=== PATIENT | female | born 1985 | race Caucasian/White ===

== ENCOUNTER 2021-09-23 14:26 | Inpatient (IN) | payer OTHER ==
[2021-09-23] VITALS (7 sets, daily range): BP systolic 107–115; BP diastolic 65–74
[~2021-09-23] VITALS: Ht 162.6 cm; Wt 82.0 kg
[2021-09-23] MEDS: PRENATAL VITAMINS CHEWABLE TABLET PO SCH (09:00)
[2021-09-23] MEDS ORDERED: OXYTOCIN INJ 10 UNITS/ML VIAL (J2590) As Ordered ONE (14:30)
[2021-09-23] MEDS ORDERED: OXYTOCIN 30 UNITS IN 0.9% NaCl 500ML IV BAG (J2590) As Ordered ONE (14:51)
[2021-09-23] MEDS ORDERED: OXYTOCIN DRIP 30 UNITS in IV 1 EA IV PRN (14:55)
[2021-09-23] MEDS ORDERED: OXYTOCIN INJ 10 UNITS/ML VIAL (J2590) IM ONE (14:55)
[2021-09-23] MEDS ORDERED: DOCUSATE SODIUM 100MG CAPSULE PO PRN (15:00)
[2021-09-23] MEDS ORDERED: MOM 30ML SUSPENSION UDC PO PRN (15:00)
[2021-09-23] MEDS ORDERED: LR 1,000 ML IV SCH (15:00)
[2021-09-23] MEDS ORDERED: OXYTOCIN DRIP 30 UNITS in IV 1 EA IV SCH (15:00)
[2021-09-23] MEDS ORDERED: ACETAMINOPHEN 500 MG TAB PO PRN (15:00)
[2021-09-23] MEDS ORDERED: OXYTOCIN DRIP 30 UNITS in IV 1 EA IV ONE (15:00)
[2021-09-23] MEDS ORDERED: RHOGAM 300 MCG (1500 IU) INJ (J2790) IM SCH (15:00)
[2021-09-23] MEDS ORDERED: METHYLERGONOVINE MALEATE 0.2 MG TAB PO PRN (15:00)
[2021-09-23] MEDS ORDERED: ANUSOL HC CREAM 30GM TOP PRN (15:00)
[2021-09-23] MEDS ORDERED: DIBUCAINE 1% OINTMENT 30GM TOP PRN (15:00)
[2021-09-23] MEDS ORDERED: ACETAMINOPHEN TAB 650MG DOSE (2X325MG) PO PRN (15:00)
[2021-09-23 15:04] LABS: CORD GAS ABE V -0.6; CORD GAS HCO3 V 23.7 MEQ/L; CORD GAS O2 SAT V 75.3 %; CORD GAS PCO2 V 38.4 mmHg; CORD GAS PH V 7.409 UNITS; CORD GAS PO2 V 29.7 mmHg; CORD GAS SBC V 23.4 MEQ/L; CORD GAS TCO2 V 24.9 MEQ/L
[2021-09-23 15:08] LABS: CORD GAS HCO3 A 26.1 MEQ/L; CORD GAS O2 SAT A 27.9 %; CORD GAS PH A 7.311 UNITS; CORD GAS PO2 A 14.8 mmHg; CORD GAS SBC A 21.9 MEQ/L; CORD GAS TCO2 A 27.8 MEQ/L
[2021-09-23 15:25] LABS: HEMATOCRIT 36.6 % (36.0-47.0); HEMOGLOBIN 12.3 g/dl (12.0-15.5); MEAN CORPUSCULAR HEMOGLOBIN 29.9 pg (27.0-33.0); MEAN CORPUSCULAR HGB CONC 33.6 g/dl (32.0-36.5); MEAN CORPUSCULAR VOLUME 88.8 fl (80.0-96.0); PLATELET COUNT, AUTOMATED 119 10^3/uL (150-450); RED BLOOD COUNT 4.12 10^6/uL (4.00-5.40); WHITE BLOOD COUNT 10.3 10^3/uL (4.0-10.0)
[2021-09-23] MEDS: IBUPROFEN 600MG TAB PO PRN (18:59)
[2021-09-24 05:24] VITALS: BP 106/56
[2021-09-24 07:21] LABS: HEMATOCRIT 32.3 % (36.0-47.0); HEMOGLOBIN 10.8 g/dl (12.0-15.5); MEAN CORPUSCULAR HEMOGLOBIN 29.7 pg (27.0-33.0); MEAN CORPUSCULAR HGB CONC 33.4 g/dl (32.0-36.5); MEAN CORPUSCULAR VOLUME 88.7 fl (80.0-96.0); PLATELET COUNT, AUTOMATED 118 10^3/uL (150-450); RED BLOOD COUNT 3.64 10^6/uL (4.00-5.40); WHITE BLOOD COUNT 14.4 10^3/uL (4.0-10.0)
[2021-09-24] MEDS ORDERED: COLA100C5 PO (07:28)
[2021-09-24] MEDS ORDERED: PRENCHW PO (07:28)
[2021-09-24] MEDS ORDERED: IBUP-1022 PO (07:28)
[2021-09-24] MEDS: IBUPROFEN 600MG TAB PO PRN (16:47)
[2021-09-24] MEDS: PRENATAL VITAMINS CHEWABLE TABLET PO SCH (16:47)
[2021-09-24 18:00] VITALS: BP 123/64
[2021-09-25] MEDS ORDERED: MEASLES,MUMPS,RUBELLA VACCINE INJ (MMR-II) (90707) SC.IMMUN ONE (09:00)
== END 2021-09-24 18:55 | disposition home or self-care (01) | DRG 807 ==
LOC: M LDI 14:26 → M OBS 20:16
PROVIDERS: ADMIT Obstetrics & Gynecology; ATTEND Obstetrics & Gynecology
PROC: 10E0XZZ Delivery of Products of Conception, External Approach (ICD-10-PCS; principal; 2021-09-23)
PROC: 0HQ9XZZ Repair Perineum Skin, External Approach (ICD-10-PCS; 2021-09-23)
DX: O24.420 Gestational diabetes mellitus in childbirth, diet controlled (principal); Z37.0 Single live birth; O62.3 Precipitate labor; O70.0 First degree perineal laceration during delivery; Z3A.38 38 weeks gestation of pregnancy

== ENCOUNTER 2022-11-06 17:39 | Outpatient (CLI) | payer OTHER ==
[~2022-11-06] VITALS: Ht 165.1 cm; Wt 76.1 kg
[~2022-11-06 17:39] MED LIST: COLA100C5 PO; IBUP-1022 PO; PRENCHW PO
[2022-11-06] MEDS ORDERED: ONDANSETRON 4MG 2ML VIAL IV ONE (17:45)
[2022-11-06] MEDS ORDERED: LR 1,000 ML IV ONE (17:45)
[2022-11-06 18:34] VITALS: BP 115/59
[2022-11-06 18:48] LABS: BASO # 0.1 10^3/uL (0.0-0.2); BASO % 0.3 % (0.0-1.0); EOS # 0.1 10^3/uL (0.0-0.5); EOS % 0.2 % (0.0-3.0); HEMATOCRIT 43.7 % (36.0-47.0); HEMOGLOBIN 14.7 g/dl (12.0-15.5); LYMPH # 1.3 10^3/uL (1.5-5.0); LYMPH % 6.3 % (24.0-44.0); MEAN CORPUSCULAR HEMOGLOBIN 30.4 pg (27.0-33.0); MEAN CORPUSCULAR HGB CONC 33.6 g/dl (32.0-36.5); MEAN CORPUSCULAR VOLUME 90.3 fl (80.0-96.0); MONO # 0.9 10^3/uL (0.0-0.8); MONO % 4.5 % (2.0-8.0); NEUTROPHILS # 18.2 10^3/uL (1.5-8.5); NEUTROPHILS % 88.3 % (36.0-66.0); PLATELET COUNT, AUTOMATED 140 10^3/uL (150-450); RED BLOOD COUNT 4.84 10^6/uL (4.00-5.40); WHITE BLOOD COUNT 20.7 10^3/uL (4.0-10.0)
[2022-11-06] MEDS ORDERED: METOCLOPRAMIDE INJ 10MG/2ML VIAL IV ONE (19:00)
[2022-11-06] MEDS ORDERED: HOME MED LIST COMPLETE! XX SCH (19:00)
[2022-11-06 19:43] LABS: ALKALINE PHOSPHATASE 66 U/L (46-116); ALT/SGPT 14 U/L (7.0-40); AST/SGOT 13 U/L (<34); BILIRUBIN,TOTAL 0.4 MG/DL (0.3-1.2); BLOOD UREA NITROGEN 8 MG/DL (9-23); CALCIUM LEVEL 8.6 MG/DL (8.5-10.1); CARBON DIOXIDE LEVEL 24 MMOL/L (20-31); CHLORIDE LEVEL 104 MMOL/L (98-107); CREATININE FOR GFR 0.57 MG/DL (0.55-1.30); GLOMERULAR FILTRATION RATE > 60.0 (>60); GLUCOSE, FASTING 85 MG/DL (60-100); POTASSIUM SERUM 3.9 MMOL/L (3.5-5.1); SODIUM LEVEL 137 MMOL/L (136-145); TOTAL PROTEIN 6.8 G/DL (5.7-8.2)
[2022-11-06 20:02] LABS: APPEARANCE, URINE CLEAR (CLEAR); BACTERIA, URINE AUTO NEGATIVE (NEGATIVE); BILIRUBIN, URINE AUTO NEGATIVE (NEGATIVE); BLOOD, URINE BLOOD NEGATIVE (NEGATIVE); COLOR, URINE YELLOW (YELLOW); GLUCOSE, URINE (UA) AUTO NEGATIVE (NEGATIVE); KETONE, URINE AUTO 1+ mg/dL (NEGATIVE); LEUKOCYTE ESTERASE, URINE AUTO NEGATIVE (NEGATIVE); MUCUS, URINE SMALL (NEGATIVE); NITRITE, URINE AUTO NEGATIVE (NEGATIVE); PROTEIN, URINE AUTO 1+ mg/dL (NEGATIVE); RBC, URINE AUTO 0 /HPF (0-3); SPECIFIC GRAVITY URINE AUTO 1.025 (1.002-1.035); SQUAMOUS EPITHELIAL CELL UR AU 0 /HPF (0-6); UROBILINOGEN, URINE AUTO 0.2 mg/dL (0.0-2.0); WBC, URINE AUTO 2 /HPF (0-3)
== END 2022-11-06 20:35 | disposition home or self-care (01) ==
LOC: M LDO 17:39
PROVIDERS: ATTEND Obstetrics & Gynecology
DX: O21.0 Mild hyperemesis gravidarum (principal); Z3A.19 19 weeks gestation of pregnancy; O26.892 Other specified pregnancy related conditions, second trimester; R19.7 Diarrhea, unspecified; O09.522 Supervision of elderly multigravida, second trimester
CPT/HCPCS: 36415; 59025; 76817; 80053; 81001; 85025; 87635; 96374; G0463; J2405; J2765